=== PATIENT | female | born 1990 | race Caucasian/White ===

== ENCOUNTER 2021-03-02 16:05 | Outpatient (CLI) | payer OTHER, SELFPAY ==
[2021-03-02 16:14] VITALS: BP 138/93; PULSE 87; TEMP 36.2; O2SAT 98
[2021-03-02 16:15] VITALS: BMI 27.8
[2021-03-02] MEDS: Lactated Ringers 1,000 ML 999 ML IV (17:00)
[2021-03-02 17:24] LABS: Hematocrit 32.5 % (37-47); Mean Corp Hgb Conc 33.8 g/dL (32-36); Mean Corpuscular Hgb 29.6 pg (27.0-32.0); Mean Corpuscular Volume 87.6 fL (81-99); Mean Platelet Vol. 10.1 fl (6.2-12.0); Platelet Count 278 K/mm3 (150-450); RBC Distribution Width CV 12.3 % (11.6-14.6); RBC Distribution Width SD 39.3 fl (35.1-43.9); Red Blood Count 3.71 M/mm3 (4.2-5.4); White Blood Count 9.8 K/mm3 (4.4-11.0)
[2021-03-02 17:58] LABS: Color, Urine Yellow (Yellow); Glucose, Dipstick Normal (Normal); Ketone-Dipstick 50 mg/dl (Negative); Leukocyte Esterase-Dipstick Negative /ul (Negative); Nitrite-Dipstick Negative (Negative); Occult Blood-Urine 10 /ul (Negative); Protein-Dipstick Negative (Negative); Specific Gravity, Urine 1.015 (1.002-1.030); Urine Bilirubin Dipstick Negative (Negative); Urine Clarity Cloudy (Clear); Urine Urobilinogen Normal (Normal); Urine pH 6.5 (5.0 - 8.0)
[2021-03-02 18:05] LABS: AST(SGOT) 13 U/L (15-37); Alanine Aminotransfer ALT/SGPT 16 U/L (13-56); Creatinine, Serum 0.51 mg/dL (0.55-1.02); EST Glomerular Filtration Rate 151 mL/min (>60); Est Glom Filt Rate - Afr Amer 183 mL/min (>60); Uric Acid 4.1 mg/dL (2.6-6.0)
[2021-03-02 18:12] LABS: Protein, Urine (Random) 18.6 mg/dL (<11.9); Protein:Creat Ratio 209 mg/g CRE (0-200)
[2021-03-02 18:55] VITALS: BP 136/80; PULSE 86
[2021-03-02 19:01] LABS: Albumin, Serum 2.9 g/dL (3.2-5.0); Bilirubin, Direct 0.08 mg/dL (0.00-0.30); LDH 537 U/L (84-246)
[2021-03-02 19:14] VITALS: TEMP 36.4
--- NOTE | 2021-03-02 20:20 | OB.TRI.HP_ITS ---
HPI - General HPI Narrative MICHAEL BRANCH, is a 30 F who presents to labor and delivery with right upper quadrant pain and some nonspecific lower back pain. All of this started a few days ago and it became so severe that she decided to present to our hospital. care thus far has been unremarkable and she sees an [facility] in [facility]. She has been visiting her family this weekend. She denies any PIH symptoms such as headache or blurred vision. She does have a history of PIH at the end of her last but blood pressures in this have been normal. Maternal Data Information Final CATRACHO: 04/23/21 Gestational age: 32+ weeks gestation PFSH PFSH Home Medications Aspir-81 162 mg PO/SL DAILY 03/02/21 [History Last Taken Unknown] Prenatabs FA 1 tab PO/SL DAILY 03/02/21 [History Last Taken Unknown] Allergy/AdvReac Type Severity Reaction Status Date / Time No Known Allergies Allergy Verified 03/02/21 16:15 no surgical history Social History (Updated 03/02/21 @ 20:[address] Jose Smallwood MD) Smoking Status: Never smoker details: None during substance use type: does not use Physical Exam Const alert, oriented x3, no apparent distress, average body habitus, no limitations, healthy appearing and well nourished General Appearance: cooperative, comfortable and well kempt Orientation / Consciousness: awake, oriented to person, oriented to place and oriented to time Exam Limitations: no limitations Chest Chest Narrative: Some sharp tenderness over the lowest rib of the right rib cage anteriorly; no tenderness over the gallbladder Back/Spine no CVA tenderness, normal ROM and normal to inspection Extremity normal to inspection, full ROM, no joint enlargement and no clubbing, cyanosis or edema Neuro oriented x3, CN's II-XII intact bilaterally, moves all extremities, no focal motor deficits and no sensory deficits noted Psych thought process normal, cooperative, affect normal and speech normal NST FHR Rate Baby A NST Reactive:: Yes FHR Category:: Category I Assessment & Plan (1) with abdominal pain of right upper quadrant, antepartum: PLAN: 32+ week intrauterine with right rib pain and possible urinary tract infection. PIH labs and liver function tests OK for discharge. LDH is slightly elevated but patient admits to taking quite a bit of Tylenol lately for the right upper quadrant pain. Patient plans to follow-up with her [facility] in [place] on Thursday (2 days from now). We will give a dose of oxycodone and a dose of Macrobid before leaving labor and delivery and give her an rx for Macrobid twice daily for 7 days and 2 additional doses of oxycodone should she need this for the discomfort prior to her physician visit on Thursday. Reactive nonstress test.
[2021-03-02] MEDS: oxyCODONE 5 MG Tablet PO (20:31)
[2021-03-02] MEDS: Nitrofurantoin Macrocrystals 100 MG Capsule PO (20:33)
--- NOTE | 2021-03-02 20:33 | DCINST_ITS ---
Discharge Instructions Diet Discharge Diet: No restrictions Activity Discharge Activity: Return to Normal Activity Dressing / Incision Call your doctor if you observe: Fever of 101 or Higher and Uncontrolled pain Follow Up Care Please Follow Up With: Jose Smallwood MD When: Next week for OB visit or can go to [facility] in [place] Test Results: Test results from this visit will be discussed in further detail at your follow-up appointment, if applicable. Pending Tests Upon Discharge: Urine culture and sensitivity will be back in 1 to 3 days. Discharge Plan Admission Reason For Visit: SHARP PAIN ON RIGHT SIDE Attending Provider: Jose Smallwood Discharge Orders/Prescriptions Prescriptions: New nitrofurantoin monohyd/m-cryst [Macrobid] 100 mg capsule 100 mg PO Q12H 7 Days Qty: 14 RF: 0 oxycodone 5 mg tablet 5 mg PO Q8H PRN (Reason: pain (scale score 7-10)) 2 Days Qty: 2 RF: 0 Continued Aspir-81 162 mg PO/SL DAILY RF: 0 Prenatabs FA 1 tab PO/SL DAILY RF: 0 Referrals / Follow Up: CRISTOFER OCONNOR [Other] Disposition Patient Disposition: Home, Self Care
== END 2021-03-02 23:59 | disposition home or self-care (01) ==
LOC: WPOUT 16:14 → WP 16:14
PROVIDERS: Visit Provider Obstetrics & Gynecology
DX: O26.893 Other specified pregnancy related conditions, third trimester (principal); R10.11 Right upper quadrant pain; O99.893 Other specified diseases and conditions complicating puerperium; M54.50 Low back pain, unspecified; Z3A.32 32 weeks gestation of pregnancy
CPT/HCPCS: 36415; 59025; 59050; 81002; 82040; 82247; 82248; 82565; 82570; 83615; 84156; 84450; 84460; 84550; 85027; 99218; J7120; G0378